=== PATIENT | female | born 1930 | race African-American/Black ===

== ENCOUNTER 2017-04-19 15:20 | Inpatient (IN) | payer MEDICARE, MEDICAID ==
[~2017-04-19] VITALS: Ht 167.6 cm; Wt 80.7 kg
[~2017-04-19 15:20] MED LIST: DOXA2TAB2 PO; FURO-151 PO; HYDR100T26 PO; METO25TA6 PO; NIFE90TA2 PO; PANT40TA4 PO
[2017-04-19] MEDS ORDERED: SODIUM CHLORIDE 0.9% 1,000 ML IV ONE (15:41)
[2017-04-19 16:01] LABS: BASOPHILS % 0.9 % (0.0-2.0); EOSINOPHILS % 1.3 % (0.0-5.0); HEMATOCRIT. 30.8 % (36.0-48.0); HEMOGLOBIN. 10.3 g/dL (12.0-16.0); LYMPHOCYTES % 17.5 % (20.0-50.0); MEAN CORPUSCULAR HEMOGLOBIN 28.2 pg (28.0-32.0); MEAN CORPUSCULAR VOLUME 84.1 fL (81.0-99.0); MEAN PLATELET VOLUME 9.4 fl (7.4-10.4); MONOCYTES % 8.8 % (2.0-8.0); NEUTROPHILS % 71.5 % (40.0-76.0); PLATELET 126 x1000/uL (130-400); RED BLOOD CELL COUNT 3.66 mill/uL (4.2-5.4); RED CELL DISTRIBUTION WIDTH 14.1 % (11.6-14.6)
[2017-04-19 16:08] LABS: INR 1.1; PARTIAL THROMBOPLASTIN TIME 30.3 sec (23.4-31.0); PROTHROMBIN TIME 11.7 sec (9.4-11.6)
[2017-04-19 16:16] LABS: CARBON DIOXIDE 26 mEq/L (21-32); CHLORIDE 100 mEq/L (98-107)
[2017-04-19 16:18] LABS: CREATINE KINASE MB FRACTION 1.4 ng/mL (0.5-3.6)
[2017-04-19] MEDS ORDERED: ASPIRIN 81MG TABLET PO ONE (16:45)
[2017-04-19 17:00] LABS: CLARITY URINE CLOUDY (CLEAR); COLOR URINE YELLOW (YELLOW); GLUCOSE URINE NEGATIVE (NEGATIVE); KETONES URINE NEGATIVE (NEGATIVE); LEUKOCYTE ESTERASE URINE NEGATIVE (NEGATIVE); NITRITE URINE NEGATIVE (NEGATIVE); OCCULT BLOOD URINE NEGATIVE (NEGATIVE); PROTEIN URINE 2+ (NEGATIVE); SPECIFIC GRAVITY URINE 1.011 (1.005-1.030); UROBILINOGEN URINE 0.2 E.U./dL (0.2-1.0)
[2017-04-19] MEDS ORDERED: CLONIDINE 0.2MG TABLET PO ONE (19:30)
[2017-04-19 21:00] VITALS: BP 203/74
[2017-04-19 21:30] VITALS: BP 190/81
[2017-04-19] MEDS ORDERED: DEXTROSE 50% WATER 50ML SYRINGE IV PRN (22:45)
[2017-04-19] MEDS ORDERED: TEMAZEPAM 15MG CAPSULE PO PRN (22:45)
[2017-04-19] MEDS ORDERED: CLONIDINE 0.1MG TABLET PO PRN (22:45)
[2017-04-20] VITALS: BP 147/54
[2017-04-20] MEDS: NIFEDIPINE XL 90MG TAB PO SCH ×2 (00:41→08:12)
[2017-04-20] MEDS: SODIUM CHLORIDE 0.45% 1,000 ML IV SCH ×2 (00:42→14:06)
[2017-04-20 01:09] LABS: TROPONIN I 0.19 ng/mL (0.00-0.04)
[2017-04-20 01:10] LABS: CREATINE KINASE MB FRACTION 1.3 ng/mL (0.5-3.6)
[2017-04-20 04:00] VITALS: BP 148/58
[2017-04-20] MEDS: HYDRALAZINE HCL 50MG TABLET PO SCH ×2 (06:53→14:06)
[2017-04-20] MEDS: BLOOD SUGAR DIAGNOSTIC STRIP TEST SCH ×3 (07:02→17:33)
[2017-04-20] MEDS: INSULIN LISPRO 100 UNITS/ML SUBCUT SCH ×3 (07:03→17:33)
[2017-04-20 07:45] LABS: CREATINE KINASE MB FRACTION 1.2 ng/mL (0.5-3.6); TROPONIN I 0.19 ng/mL (0.00-0.04)
[2017-04-20 08:00] VITALS: BP 123/46
[2017-04-20] MEDS ORDERED: FAMOTIDINE 20MG TABLET PO SCH (09:00)
[2017-04-20] MEDS ORDERED: ENOXAPARIN 30MG/0.3ML SYR SUBCUT SCH (09:00)
[2017-04-20] MEDS ORDERED: PANTOPRAZOLE 40MG DR TABLET PO SCH (09:00)
[2017-04-20] MEDS ORDERED: ASPIRIN 81MG TABLET PO SCH (09:00)
[2017-04-20] MEDS ORDERED: METOPROLOL TARTRATE 25MG TABLET PO SCH (09:00)
[2017-04-20 12:00] VITALS: BP 123/48
[2017-04-20 15:32] LABS: BASOPHILS % 1.9 % (0.0-2.0); EOSINOPHILS % 1.8 % (0.0-5.0); HEMATOCRIT. 29.5 % (36.0-48.0); HEMOGLOBIN. 10.1 g/dL (12.0-16.0); LYMPHOCYTES % 26.7 % (20.0-50.0); MEAN CORPUSCULAR VOLUME 85.1 fL (81.0-99.0); MEAN PLATELET VOLUME 10.5 fl (7.4-10.4); MONOCYTES % 6.9 % (2.0-8.0); NEUTROPHILS % 62.7 % (40.0-76.0); PLATELET 125 x1000/uL (130-400); RED BLOOD CELL COUNT 3.47 mill/uL (4.2-5.4); RED CELL DISTRIBUTION WIDTH 13.7 % (11.6-14.6)
[2017-04-20 19:41] VITALS: BP 138/53
== END 2017-04-20 21:06 | disposition home or self-care (01) | DRG 305 ==
LOC: ER 15:30 → 8WST 16:46 → EDBEDREQ 16:48 → EDBEDREQTM 16:48 → CANRESERV 19:09 → ENRESERV 19:09
PROVIDERS: ADMIT Internal Medicine; ATTEND Internal Medicine
DX: I16.0 Hypertensive urgency (principal); E11.22 Type 2 diabetes mellitus with diabetic chronic kidney disease; D64.9 Anemia, unspecified; R42 Dizziness and giddiness; I12.9 Hypertensive chronic kidney disease with stage 1 through stage 4 chronic kidney disease, or unspecified chronic kidney disease; M62.50 Muscle wasting and atrophy, not elsewhere classified, unspecified site; M19.90 Unspecified osteoarthritis, unspecified site; E78.00 Pure hypercholesterolemia, unspecified; N18.9 Chronic kidney disease, unspecified; Z88.0 Allergy status to penicillin; Z90.10 Acquired absence of unspecified breast and nipple; Z85.3 Personal history of malignant neoplasm of breast
CPT/HCPCS: 36415; 71010; 80048; 80053; 80061; 81001; 82550; 82553; 82962; 84484; 85025; 85610; 85730; 87086; 93005; 93306; 96360; 99285; J1650; J7030

== ENCOUNTER 2017-07-14 10:39 | Emergency (ER) | payer MEDICARE ==
[~2017-07-14] VITALS: Ht 165.1 cm; Wt 102.0 kg
[~2017-07-14 10:39] MED LIST changes: -DOXA2TAB2 PO
[2017-07-14] MEDS ORDERED: SITA50TA3 PO (10:44)
[2017-07-14] MEDS ORDERED: CLON0.1T PO (10:44)
[2017-07-14 11:10] VITALS: BP 175/58
[2017-07-14] MEDS ORDERED: FAMOTIDINE 20MG/2ML VIAL IV STA (11:47)
[2017-07-14] MEDS ORDERED: ONDANSETRON HCL 4MG/2ML VIAL IV STA (11:47)
[2017-07-14] MEDS ORDERED: SODIUM CHLORIDE 0.9% 1,000 ML IV ONE (11:47)
[2017-07-14] MEDS ORDERED: VISCOUS LIDOCAINE 2% 15 ML UDC PO STA (11:47)
[2017-07-14] MEDS ORDERED: MAGNESIUM/ALUMINUM HYDROXIDE/SIMETHICONE 30ML UDC PO STA (11:47)
[2017-07-14] MEDS ORDERED: DICYCLOMINE 10 MG/5 ML ORAL SYR PO STA (11:47)
[2017-07-14 12:39] LABS: EOSINOPHILS % 1.1 % (0.0-5.0); HEMATOCRIT. 31.1 % (36.0-48.0); HEMOGLOBIN. 10.4 g/dL (12.0-16.0); LYMPHOCYTES % 17.6 % (20.0-50.0); MEAN CORPUSCULAR HEMOGLOBIN 27.3 pg (28.0-32.0); MEAN CORPUSCULAR VOLUME 81.8 fL (81.0-99.0); MEAN PLATELET VOLUME 9.9 fl (7.4-10.4); MONOCYTES % 7.5 % (2.0-8.0); NEUTROPHILS % 72.8 % (40.0-76.0); PLATELET 173 x1000/uL (130-400); RED CELL DISTRIBUTION WIDTH 13.5 % (11.6-14.6)
[2017-07-14 12:48] LABS: CHLORIDE 93 mEq/L (98-107); INR 1.1; PROTHROMBIN TIME 11.4 sec (9.4-11.6)
[2017-07-14 12:48] LABS: CLARITY URINE CLEAR (CLEAR); COLOR URINE YELLOW (YELLOW); KETONES URINE NEGATIVE (NEGATIVE); LEUKOCYTE ESTERASE URINE NEGATIVE (NEGATIVE); NITRITE URINE NEGATIVE (NEGATIVE); OCCULT BLOOD URINE NEGATIVE (NEGATIVE); PROTEIN URINE 2+ (NEGATIVE); SPECIFIC GRAVITY URINE 1.009 (1.005-1.030); UROBILINOGEN URINE 0.2 E.U./dL (0.2-1.0)
== END 2017-07-14 13:36 | disposition home or self-care (01) ==
LOC: ER 10:46
DX: K21.9 Gastro-esophageal reflux disease without esophagitis (principal); E11.9 Type 2 diabetes mellitus without complications; E78.00 Pure hypercholesterolemia, unspecified; R79.1 Abnormal coagulation profile; I10 Essential (primary) hypertension; Z88.0 Allergy status to penicillin; Z90.10 Acquired absence of unspecified breast and nipple
CPT/HCPCS: 36415; 71045; 80053; 81001; 82962; 83690; 85025; 85610; 93005; 96361; 96374; 96375; 99285; J2405; J3490; J7030

== ENCOUNTER 2017-08-31 15:26 | Inpatient (IN) | payer MEDICARE, MEDICAID ==
[~2017-08-31] VITALS: Ht 177.8 cm; Wt 77.1 kg
[~2017-08-31 15:26] MED LIST changes: +CLON0.1T PO; +SITA50TA3 PO
[2017-08-31] MEDS ORDERED: ASPIRIN 81MG EC TABLET PO ONE (17:00)
[2017-08-31 17:34] LABS: BASOPHILS % 0.9 % (0.0-2.0); EOSINOPHILS % 1.7 % (0.0-5.0); HEMATOCRIT. 30.9 % (36.0-48.0); HEMOGLOBIN. 10.4 g/dL (12.0-16.0); LYMPHOCYTES % 25.5 % (20.0-50.0); MEAN CORPUSCULAR HEMOGLOBIN 27.7 pg (28.0-32.0); MEAN CORPUSCULAR VOLUME 82.5 fL (81.0-99.0); MEAN PLATELET VOLUME 9.7 fl (7.4-10.4); MONOCYTES % 5.9 % (2.0-8.0); PLATELET 124 x1000/uL (130-400); RED BLOOD CELL COUNT 3.75 mill/uL (4.2-5.4); RED CELL DISTRIBUTION WIDTH 14.2 % (11.6-14.6)
[2017-08-31 17:38] LABS: CHLORIDE 103 mEq/L (98-107)
[2017-08-31 17:38] LABS: INR 1.1; PARTIAL THROMBOPLASTIN TIME 29.4 sec (23.4-31.0); PROTHROMBIN TIME 11.7 sec (9.4-11.6)
[2017-08-31] MEDS ORDERED: ASPIRIN 325MG EC TABLET PO ONE (18:30)
[2017-08-31] MEDS ORDERED: LABETALOL HCL 20MG/4ML CARPUJECT IV STA (18:36)
[2017-08-31] MEDS ORDERED: LABETALOL 5MG/ML SYR 20 MG/4 ML SYRINGE IV ONE (19:04)
[2017-08-31 19:17] LABS: CLARITY URINE CLEAR (CLEAR); COLOR URINE YELLOW (YELLOW); KETONES URINE NEGATIVE (NEGATIVE); LEUKOCYTE ESTERASE URINE NEGATIVE (NEGATIVE); NITRITE URINE NEGATIVE (NEGATIVE); OCCULT BLOOD URINE NEGATIVE (NEGATIVE); PH URINE 6.5 (4.5-8.0); PROTEIN URINE 2+ (NEGATIVE); SPECIFIC GRAVITY URINE 1.011 (1.005-1.030); UROBILINOGEN URINE 0.2 E.U./dL (0.2-1.0)
[2017-08-31] MEDS: LOSARTAN POTASSIUM 50 MG TABLET PO SCH (22:15)
[2017-08-31] MEDS ORDERED: ACETAMINOPHEN 650MG/20.3ML UDC PO PRN (22:15)
[2017-08-31] MEDS: ASPIRIN 81MG TABLET PO SCH (22:15)
[2017-08-31] MEDS: METOPROLOL TARTRATE 50MG TABLET PO SCH (22:15)
[2017-08-31] MEDS ORDERED: LOSARTAN POTASSIUM 50 MG TABLET PO NR (22:30)
[2017-08-31 23:45] VITALS: BP 179/58
[2017-09-01] VITALS: BP 179/58
[2017-09-01] MEDS ORDERED: AMLO2.5T45 PO (00:20)
[2017-09-01] MEDS ORDERED: SIMV10TA6 PO (00:20)
[2017-09-01] MEDS ORDERED: DEXTROSE 50% WATER 50ML SYRINGE IV PRN (01:15)
[2017-09-01 04:00] VITALS: BP 150/50
[2017-09-01] MEDS: HYDRALAZINE HCL 50MG TABLET PO SCH ×3 (05:49→21:12)
[2017-09-01] MEDS: PANTOPRAZOLE 40MG DR TABLET PO SCH ×2 (05:50→20:38)
[2017-09-01] MEDS: BLOOD SUGAR DIAGNOSTIC STRIP TEST SCH ×4 (05:51→20:46)
[2017-09-01 08:28] LABS: BASOPHILS % 0.8 % (0.0-2.0); EOSINOPHILS % 2.1 % (0.0-5.0); HEMATOCRIT. 31.2 % (36.0-48.0); HEMOGLOBIN. 10.5 g/dL (12.0-16.0); LYMPHOCYTES % 34.9 % (20.0-50.0); MEAN CORPUSCULAR HEMOGLOBIN 27.5 pg (28.0-32.0); MEAN CORPUSCULAR VOLUME 81.9 fL (81.0-99.0); MEAN PLATELET VOLUME 10.4 fl (7.4-10.4); MONOCYTES % 6.6 % (2.0-8.0); NEUTROPHILS % 55.6 % (40.0-76.0); PLATELET 131 x1000/uL (130-400); RED BLOOD CELL COUNT 3.81 mill/uL (4.2-5.4); RED CELL DISTRIBUTION WIDTH 14.4 % (11.6-14.6)
[2017-09-01 08:56] LABS: CHLORIDE 106 mEq/L (98-107)
[2017-09-01 09:00] VITALS: BP 176/66
[2017-09-01 09:16] LABS: HDL CHOLESTEROL 59 mg/dL (40-59); LDL CHOLESTEROL 98 mg/dL (5-100); TROPONIN I 0.12 ng/mL (0.00-0.04)
[2017-09-01] MEDS: ASPIRIN 81MG TABLET PO SCH (10:10)
[2017-09-01] MEDS: METOPROLOL TARTRATE 50MG TABLET PO SCH ×2 (10:11→20:39)
[2017-09-01] MEDS: LOSARTAN POTASSIUM 50 MG TABLET PO SCH ×2 (10:11→20:38)
[2017-09-01] MEDS: ENOXAPARIN 30MG/0.3ML SYR SUBCUT SCH (10:12)
[2017-09-01 12:00] VITALS: BP 196/62
[2017-09-01 16:00] VITALS: BP 175/62
[2017-09-01] MEDS ORDERED: POTASSIUM CHLORIDE 20MEQ/PACKET PO NR (18:45)
[2017-09-01] MEDS ORDERED: METO-539 PO (19:44)
[2017-09-01] MEDS ORDERED: RANI150T7 PO (19:44)
[2017-09-01] MEDS ORDERED: OCD PO (19:44)
[2017-09-01] MEDS ORDERED: TEMA15CA5 PO (19:44)
[2017-09-01] MEDS ORDERED: LORA10TA7 PO (19:44)
[2017-09-01] MEDS ORDERED: POTA10CA42 PO (19:44)
[2017-09-01] MEDS ORDERED: ASPI-1159 PO (19:44)
[2017-09-01] MEDS ORDERED: FURO-152 PO (19:44)
[2017-09-01] MEDS ORDERED: LOSA25TA3 PO (19:44)
[2017-09-01 20:00] VITALS: BP_SYST 204; BP_SYST 212; BP_DIAS 58; BP_DIAS 71
[2017-09-01] MEDS ORDERED: LABETALOL 5MG/ML SYR 20 MG/4 ML SYRINGE IV NR (20:00)
[2017-09-01] MEDS: ATORVASTATIN CALCIUM 20MG TABLET PO SCH (20:38)
[2017-09-01] MEDS: ACETAMINOPHEN 325MG TABLET PO PRN (21:12)
[2017-09-02] VITALS (7 sets, daily range): BP systolic 134–218; BP diastolic 41–71
[2017-09-02] MEDS ORDERED: TEMAZEPAM 15MG CAPSULE PO PRN
[2017-09-02] MEDS: CLONIDINE 0.2MG TABLET PO PRN ×3 (00:09→17:46)
[2017-09-02] MEDS: HYDRALAZINE HCL 50MG TABLET PO SCH ×3 (05:51→21:38)
[2017-09-02] MEDS: PANTOPRAZOLE 40MG DR TABLET PO SCH ×2 (05:51→21:37)
[2017-09-02] MEDS: BLOOD SUGAR DIAGNOSTIC STRIP TEST SCH ×4 (05:52→21:52)
[2017-09-02 06:45] LABS: BASOPHILS % 0.9 % (0.0-2.0); EOSINOPHILS % 2.3 % (0.0-5.0); HEMATOCRIT. 29.7 % (36.0-48.0); LYMPHOCYTES % 31.3 % (20.0-50.0); MEAN CORPUSCULAR VOLUME 83.2 fL (81.0-99.0); NEUTROPHILS % 57.5 % (40.0-76.0); PLATELET 117 x1000/uL (130-400); RED BLOOD CELL COUNT 3.57 mill/uL (4.2-5.4); RED CELL DISTRIBUTION WIDTH 14.5 % (11.6-14.6)
[2017-09-02 07:20] LABS: CHLORIDE 106 mEq/L (98-107)
[2017-09-02] MEDS: ACETAMINOPHEN 325MG TABLET PO PRN (07:56)
[2017-09-02] MEDS: ASPIRIN 81MG TABLET PO SCH (08:00)
[2017-09-02] MEDS: LOSARTAN POTASSIUM 50 MG TABLET PO SCH ×2 (08:01→21:37)
[2017-09-02] MEDS: METOPROLOL TARTRATE 50MG TABLET PO SCH ×2 (08:01→21:38)
[2017-09-02] MEDS: ENOXAPARIN 30MG/0.3ML SYR SUBCUT SCH (08:03)
[2017-09-02] MEDS ORDERED: ONDANSETRON HCL 4MG/2ML VIAL IV PRN (08:30)
[2017-09-02] MEDS: MORPHINE SULFATE 4 MG/ML CPJ (NOT FOR IM USE) IV PRN ×2 (17:41→21:41)
[2017-09-02] MEDS: ATORVASTATIN CALCIUM 20MG TABLET PO SCH (21:37)
[2017-09-02] MEDS: AMLODIPINE 5MG TABLET PO SCH (21:37)
[2017-09-03] VITALS: BP 197/59
[2017-09-03] MEDS: CLONIDINE 0.2MG TABLET PO PRN (01:09)
[2017-09-03 04:00] VITALS: BP 136/47
[2017-09-03] MEDS: HYDRALAZINE HCL 50MG TABLET PO SCH (06:43)
[2017-09-03] MEDS: PANTOPRAZOLE 40MG DR TABLET PO SCH (06:43)
[2017-09-03] MEDS: BLOOD SUGAR DIAGNOSTIC STRIP TEST SCH ×2 (06:49→12:16)
[2017-09-03 08:00] VITALS: BP 210/74
[2017-09-03] MEDS: ENOXAPARIN 30MG/0.3ML SYR SUBCUT SCH (08:53)
[2017-09-03] MEDS: LOSARTAN POTASSIUM 50 MG TABLET PO SCH (08:55)
[2017-09-03] MEDS: AMLODIPINE 5MG TABLET PO SCH (08:55)
[2017-09-03] MEDS: ASPIRIN 81MG TABLET PO SCH (08:56)
[2017-09-03] MEDS: METOPROLOL TARTRATE 50MG TABLET PO SCH (08:56)
[2017-09-03 11:07] LABS: HEMOGLOBIN 11.3 g/dL (12.0-16.0); MEAN CORPUSCULAR HEMOGLOBIN 28.5 pg (28.0-32.0); MEAN CORPUSCULAR VOLUME 85.7 fL (81.0-99.0); PLATELET 110 x1000/uL (130-400); RED BLOOD CELL COUNT 3.97 mill/uL (4.2-5.4); RED CELL DISTRIBUTION WIDTH 15.1 % (11.6-14.6)
[2017-09-03 12:00] VITALS: BP 164/49
[2017-09-03 12:42] VITALS: BP_SYST 146; BP_SYST 164; BP_DIAS 46; BP_DIAS 49
[2017-09-03] MEDS ORDERED: DEXTROSE 50% WATER 50ML SYRINGE IV PRN (12:45)
[2017-09-03] MEDS ORDERED: INSULIN LISPRO 100 UNITS/ML SUBCUT SCH (13:11)
[2017-09-03] MEDS ORDERED: BLOOD SUGAR DIAGNOSTIC STRIP TEST SCH (16:45)
== END 2017-09-03 13:15 | DRG 291 ==
LOC: ER 15:26 → 5WST 18:28 → EDBEDREQ 18:29 → ENRESERV 19:55 → CANRESERV 19:56 → ENRESERV 19:56
PROVIDERS: ADMIT Internal Medicine; ATTEND Internal Medicine
DX: I13.0 Hypertensive heart and chronic kidney disease with heart failure and stage 1 through stage 4 chronic kidney disease, or unspecified chronic kidney disease (principal); I50.33 Acute on chronic diastolic (congestive) heart failure; E46 Unspecified protein-calorie malnutrition; E11.22 Type 2 diabetes mellitus with diabetic chronic kidney disease; D64.9 Anemia, unspecified; N18.9 Chronic kidney disease, unspecified; E78.00 Pure hypercholesterolemia, unspecified; E78.5 Hyperlipidemia, unspecified; I16.0 Hypertensive urgency; G47.00 Insomnia, unspecified; Z79.82 Long term (current) use of aspirin; Z79.84 Long term (current) use of oral hypoglycemic drugs; Z79.899 Other long term (current) drug therapy; Z90.10 Acquired absence of unspecified breast and nipple; Z88.0 Allergy status to penicillin; Z68.24 Body mass index [BMI] 24.0-24.9, adult
CPT/HCPCS: 36415; 70450; 71045; 80048; 80053; 80061; 81003; 82962; 83690; 83880; 84443; 84484; 85025; 85027; 85610; 85730; 93005; 96374; 97162; 99285; J1650; J1815; J2270; J3490

== ENCOUNTER 2018-10-11 19:05 | Inpatient (IN) | payer MEDICARE, MEDICAID ==
[~2018-10-11] VITALS: Ht 177.8 cm; Wt 78.5 kg
[~2018-10-11 19:05] MED LIST changes: +ACET-2178 PO; +AMLO10TA80 PO; +ASPI-1159 PO; -FURO-151 PO; +FURO-152 PO; +GABA-531 PO; +HYDR-4134 PO; -HYDR100T26 PO; +LORA10TA7 PO; +LOSA25TA3 PO; +MAGN400C PO; +METO-539 PO; -METO25TA6 PO; -NIFE90TA2 PO; +OCD PO; -PANT40TA4 PO; +POTA10CA42 PO; +PRAV20TA57 PO; +RANI150T7 PO; +SPIR50TA5 PO; +TEMA15CA5 PO
[2018-10-11] MEDS ORDERED: MORPHINE SULFATE 4 MG/ML CPJ (NOT FOR IM USE) IV STA (19:44)
[2018-10-11] MEDS ORDERED: SODIUM CHLORIDE 0.9% 1,000 ML IV ONE (19:44)
[2018-10-11] MEDS ORDERED: ONDANSETRON HCL 4MG/2ML INJ IV STA (19:44)
[2018-10-11 20:05] LABS: EOSINOPHILS % 2.9 % (0.0-5.0); HEMATOCRIT. 26.1 % (36.0-48.0); HEMOGLOBIN. 8.9 g/dL (12.0-16.0); LYMPHOCYTES % 21.1 % (20.0-50.0); MEAN CORPUSCULAR HEMOGLOBIN 29.8 pg (28.0-32.0); MEAN CORPUSCULAR VOLUME 87.8 fL (81.0-99.0); MEAN PLATELET VOLUME 9.8 fl (7.4-10.4); MONOCYTES % 6.7 % (2.0-8.0); NEUTROPHILS % 68.3 % (40.0-76.0); PLATELET 178 x1000/uL (130-400); RED BLOOD CELL COUNT 2.98 mill/uL (4.2-5.4); RED CELL DISTRIBUTION WIDTH 14.4 % (11.6-14.6)
[2018-10-11 20:07] LABS: CHLORIDE 103 mEq/L (98-107)
[2018-10-11 20:10] LABS: INR 1.1; PARTIAL THROMBOPLASTIN TIME 32.3 sec (23.4-31.0); PROTHROMBIN TIME 11.5 sec (9.6-11.0)
[2018-10-11 20:41] LABS: CLARITY URINE CLEAR (CLEAR); COLOR URINE YELLOW (YELLOW); KETONES URINE NEGATIVE (NEGATIVE); LEUKOCYTE ESTERASE URINE NEGATIVE (NEGATIVE); NITRITE URINE NEGATIVE (NEGATIVE); OCCULT BLOOD URINE TRACE (NEGATIVE); PH URINE 6.5 (4.5-8.0); PROTEIN URINE 3+ (NEGATIVE); SPECIFIC GRAVITY URINE 1.008 (1.005-1.030); UROBILINOGEN URINE 0.2 E.U./dL (0.2-1.0)
[2018-10-11] MEDS ORDERED: HYDRALAZINE 20MG/ML VIAL IV ONE (22:00)
[2018-10-11] MEDS ORDERED: FUROSEMIDE 40MG/4ML VIAL IVP ONE (22:00)
[2018-10-11] MEDS ORDERED: ASPIRIN 81MG TABLET PO ONE (22:00)
[2018-10-11] MEDS ORDERED: CLONIDINE 0.2MG TABLET PO PRN (23:45)
[2018-10-12] VITALS (7 sets, daily range): BP systolic 145–193; BP diastolic 46–92
[2018-10-12] MEDS ORDERED: DEXTROSE 50% WATER 50ML SYRINGE IV PRN (01:45)
[2018-10-12] MEDS ORDERED: CLONIDINE 0.2MG TABLET PO PRN (01:45)
[2018-10-12] MEDS: MORPHINE SULFATE 4 MG/ML CPJ (NOT FOR IM USE) IV PRN ×2 (04:05→21:07)
[2018-10-12 05:59] LABS: BASOPHILS % 0.7 % (0.0-2.0); EOSINOPHILS % 0.1 % (0.0-5.0); HEMATOCRIT. 22.8 % (36.0-48.0); HEMOGLOBIN. 7.7 g/dL (12.0-16.0); LYMPHOCYTES % 13.4 % (20.0-50.0); MEAN CORPUSCULAR HEMOGLOBIN 29.8 pg (28.0-32.0); MEAN CORPUSCULAR VOLUME 87.8 fL (81.0-99.0); MEAN PLATELET VOLUME 10.5 fl (7.4-10.4); MONOCYTES % 5.4 % (2.0-8.0); NEUTROPHILS % 80.4 % (40.0-76.0); PLATELET 160 x1000/uL (130-400); RED BLOOD CELL COUNT 2.59 mill/uL (4.2-5.4); RED CELL DISTRIBUTION WIDTH 14.6 % (11.6-14.6)
[2018-10-12] MEDS: INSULIN LISPRO 100 UNITS/ML SUBCUT SCH ×4 (06:24→21:00)
[2018-10-12] MEDS: BLOOD SUGAR DIAGNOSTIC STRIP TEST SCH ×4 (06:24→21:21)
[2018-10-12 06:35] LABS: CREATINE KINASE MB FRACTION 2.8 ng/mL (0.5-3.6)
[2018-10-12] MEDS ORDERED: ENOXAPARIN 30MG/0.3ML SYR SUBCUT SCH (09:00)
[2018-10-12] MEDS: AMLODIPINE 10MG TABLET PO SCH (09:48)
[2018-10-12] MEDS ORDERED: SODIUM CHLORIDE 0.9% 1,000 ML IV SCH (10:45)
[2018-10-12 11:26] LABS: TOTAL IRON BINDING CAPACITY 177 ug/dL (250-450)
[2018-10-12] MEDS: OMEPRAZOLE 20MG CAPSULE EXTENDED RELEASE PO SCH (12:04)
[2018-10-12 13:59] LABS: CREATINE KINASE MB FRACTION 2.7 ng/mL (0.5-3.6)
[2018-10-12] MEDS ORDERED: HYDRALAZINE HCL 50MG TABLET PO SCH (21:00)
[2018-10-12] MEDS: IRON SUCROSE COMPLEX 100 MG/5 ML ML IV SCH (21:06)
[2018-10-12 21:46] LABS: CREATINE KINASE MB FRACTION 2.8 ng/mL (0.5-3.6)
[2018-10-13] VITALS: BP 183/67
[2018-10-13] MEDS ORDERED: AMLODIPINE 10MG TABLET PO NR (01:00)
[2018-10-13] MEDS: MORPHINE SULFATE 4 MG/ML CPJ (NOT FOR IM USE) IV PRN ×2 (01:12→08:40)
[2018-10-13] MEDS: HYDRALAZINE HCL 50MG TABLET PO SCH ×2 (01:19→08:59)
[2018-10-13 04:00] VITALS: BP 158/51
[2018-10-13] MEDS: INSULIN LISPRO 100 UNITS/ML SUBCUT SCH ×4 (06:11→21:52)
[2018-10-13] MEDS: OMEPRAZOLE 20MG CAPSULE EXTENDED RELEASE PO SCH (06:11)
[2018-10-13] MEDS: BLOOD SUGAR DIAGNOSTIC STRIP TEST SCH ×4 (06:11→21:14)
[2018-10-13 07:18] LABS: BASOPHILS % 0.9 % (0.0-2.0); EOSINOPHILS % 2.9 % (0.0-5.0); HEMATOCRIT. 23.2 % (36.0-48.0); HEMOGLOBIN. 7.7 g/dL (12.0-16.0); LYMPHOCYTES % 35.9 % (20.0-50.0); MEAN CORPUSCULAR HEMOGLOBIN 29.3 pg (28.0-32.0); MEAN CORPUSCULAR VOLUME 88.4 fL (81.0-99.0); MEAN PLATELET VOLUME 10.4 fl (7.4-10.4); MONOCYTES % 7.5 % (2.0-8.0); NEUTROPHILS % 52.8 % (40.0-76.0); PLATELET 148 x1000/uL (130-400); RED BLOOD CELL COUNT 2.62 mill/uL (4.2-5.4); RED CELL DISTRIBUTION WIDTH 14.5 % (11.6-14.6)
[2018-10-13 08:00] VITALS: BP 233/79
[2018-10-13] MEDS: AMLODIPINE 10MG TABLET PO SCH (08:39)
[2018-10-13] MEDS ORDERED: CLONIDINE 0.2MG TABLET PO PRN (08:54)
[2018-10-13] MEDS: ONDANSETRON HCL 4MG/2ML INJ IV PRN ×2 (09:57→18:33)
[2018-10-13] MEDS ORDERED: CLONIDINE 0.1MG TABLET PO PRN (10:45)
[2018-10-13] MEDS ORDERED: NITROGLYCERIN OINT 1GM/INCH UDPKT TD NR (10:45)
[2018-10-13] MEDS ORDERED: NIFEDIPINE XL 60MG TAB PO SCH ×2 (11:00→21:00)
[2018-10-13 12:00] VITALS: BP 204/68
[2018-10-13] MEDS ORDERED: METOPROLOL TARTRATE 25MG TABLET PO SCH ×2 (12:00→21:00)
[2018-10-13] MEDS ORDERED: HYDRALAZINE 20MG/ML VIAL IV NR (13:15)
[2018-10-13] MEDS ORDERED: CLONIDINE 0.2MG TABLET PO SCH (15:00)
[2018-10-13] MEDS: CLONIDINE 0.1MG TABLET PO SCH ×2 (15:00→21:14)
[2018-10-13] MEDS ORDERED: CLONIDINE 0.1MG TABLET PO SCH (15:00)
[2018-10-13 16:00] VITALS: BP 149/52
[2018-10-13] MEDS ORDERED: FUROSEMIDE 40MG/4ML VIAL IVP NR (16:00)
[2018-10-13 18:00] LABS: PHOSPHORUS 4.7 mg/dL (2.5-4.9)
[2018-10-13] MEDS: HYDRALAZINE HCL 100MG TABLET PO SCH (18:00)
[2018-10-13 20:00] VITALS: BP 130/51
[2018-10-13] MEDS: IRON SUCROSE COMPLEX 100 MG/5 ML ML IV SCH (21:14)
[2018-10-14] VITALS: BP 106/40
[2018-10-14] MEDS: HYDRALAZINE HCL 100MG TABLET PO SCH (02:57)
[2018-10-14] MEDS: CLONIDINE 0.1MG TABLET PO SCH ×4 (03:00→21:28)
[2018-10-14 04:00] VITALS: BP 100/37
[2018-10-14 06:11] LABS: BASOPHILS % 0.6 % (0.0-2.0); EOSINOPHILS % 1.5 % (0.0-5.0); HEMATOCRIT. 22.2 % (36.0-48.0); HEMOGLOBIN. 7.5 g/dL (12.0-16.0); LYMPHOCYTES % 21.4 % (20.0-50.0); MEAN CORPUSCULAR VOLUME 88.9 fL (81.0-99.0); MEAN PLATELET VOLUME 10.6 fl (7.4-10.4); MONOCYTES % 8.4 % (2.0-8.0); NEUTROPHILS % 68.1 % (40.0-76.0); PLATELET 159 x1000/uL (130-400); RED CELL DISTRIBUTION WIDTH 14.6 % (11.6-14.6)
[2018-10-14] MEDS: OMEPRAZOLE 20MG CAPSULE EXTENDED RELEASE PO SCH (06:48)
[2018-10-14] MEDS: BLOOD SUGAR DIAGNOSTIC STRIP TEST SCH ×4 (06:49→21:28)
[2018-10-14] MEDS: INSULIN LISPRO 100 UNITS/ML SUBCUT SCH ×4 (06:52→21:00)
[2018-10-14 06:55] LABS: CHLORIDE 106 mEq/L (98-107)
[2018-10-14] MEDS: ONDANSETRON HCL 4MG/2ML INJ IV PRN (07:36)
[2018-10-14 08:00] VITALS: BP 102/49
[2018-10-14] MEDS: METOPROLOL TARTRATE 25MG TABLET PO SCH ×2 (09:00→21:00)
[2018-10-14] MEDS ORDERED: BACTERIOSTATIC SODIUM CHLORIDE 0.9% 30ML VIAL IJ ONE (09:51)
[2018-10-14] MEDS ORDERED: SIMETHICONE 40 MG/0.6 ML 30ML ONE (09:51)
[2018-10-14] MEDS: HYDRALAZINE HCL 25MG TABLET PO SCH ×2 (10:00→18:56)
[2018-10-14 12:00] VITALS: BP 123/44
[2018-10-14 16:00] VITALS: BP 132/41
[2018-10-14] MEDS ORDERED: MIDAZOLAM HCL 5 MG/5 ML VIAL ONE (16:15)
[2018-10-14] MEDS ORDERED: FENTANYL CITRATE/PF 50MCG/ML 2ML VIAL ONE (16:15)
[2018-10-14] MEDS ORDERED: MIDAZOLAM HCL 5 MG/5 ML VIAL IV PRN (16:18)
[2018-10-14 20:00] VITALS: BP 114/36
[2018-10-14] MEDS: IRON SUCROSE COMPLEX 100 MG/5 ML ML IV SCH (21:28)
[2018-10-14 22:05] LABS: PHOSPHORUS 4.8 mg/dL (2.5-4.9)
[2018-10-14 22:14] LABS: TOTAL IRON BINDING CAPACITY 189 ug/dL (250-450)
[2018-10-15] VITALS (7 sets, daily range): BP systolic 124–193; BP diastolic 41–64
[2018-10-15] MEDS: HYDRALAZINE HCL 25MG TABLET PO SCH ×3 (02:00→17:40)
[2018-10-15] MEDS: OMEPRAZOLE 20MG CAPSULE EXTENDED RELEASE PO SCH (05:56)
[2018-10-15] MEDS: CLONIDINE 0.1MG TABLET PO SCH ×3 (06:00→21:35)
[2018-10-15] MEDS: BLOOD SUGAR DIAGNOSTIC STRIP TEST SCH ×4 (06:01→21:36)
[2018-10-15] MEDS: INSULIN LISPRO 100 UNITS/ML SUBCUT SCH ×4 (06:05→21:00)
[2018-10-15] MEDS: METOPROLOL TARTRATE 25MG TABLET PO SCH ×2 (08:59→21:35)
[2018-10-15 09:26] LABS: BASOPHILS % 0.7 % (0.0-2.0); EOSINOPHILS % 1.6 % (0.0-5.0); HEMATOCRIT. 23.6 % (36.0-48.0); HEMOGLOBIN. 7.9 g/dL (12.0-16.0); LYMPHOCYTES % 20.7 % (20.0-50.0); MEAN CORPUSCULAR HEMOGLOBIN 29.8 pg (28.0-32.0); MEAN PLATELET VOLUME 9.7 fl (7.4-10.4); MONOCYTES % 10.4 % (2.0-8.0); NEUTROPHILS % 66.6 % (40.0-76.0); PLATELET 147 x1000/uL (130-400); RED BLOOD CELL COUNT 2.65 mill/uL (4.2-5.4); RED CELL DISTRIBUTION WIDTH 14.8 % (11.6-14.6)
[2018-10-15] MEDS ORDERED: LACTULOSE 20G/30ML UDC PO PRN (11:00)
[2018-10-15] MEDS ORDERED: LACTULOSE 20G/30ML UDC PO SCH (11:00)
[2018-10-15 13:52] LABS: BG BASE EXCESS -2.5 mmol/L (-2.0-2.0); BG CARBOXYHEMOGLOBIN 0.3 % (0.5-1.5); BG DEOXYHEMOGLOBIN 5.6 % (0.0-5.0); BG FRACTION INSPIRED OXYGEN 21; BG HCO3 ACT 22.3 mmol/L (22.0-26.0); BG METHEMOGLOBIN 0.1 % (0.0-1.5); BG OXYGEN SATURATION 94.4 % (92.0-98.5); BG PCO2 38.6 mmHg (35.0-45.0); BG PO2 72.3 mmHg (75.0-100.0); BG SAMPLE SITE LEFT BRACHIAL; BG TOTAL HEMOGLOBIN 9.3 g/dL (12.0-18.0); BG VENT MODE ROOM AIR
[2018-10-15 17:47] LABS: HEPATITIS B SURFACE ANTIGEN NEGATIVE
[2018-10-15 18:17] LABS: HEPATITIS A AB IGM NEGATIVE (NEGATIVE)
[2018-10-16] VITALS (7 sets, daily range): BP systolic 140–239; BP diastolic 48–82
[2018-10-16] MEDS: HYDRALAZINE HCL 25MG TABLET PO SCH (03:06)
[2018-10-16 06:35] LABS: HEMATOCRIT 23.3 % (36.0-48.0); HEMOGLOBIN 7.9 g/dL (12.0-16.0); PLATELET 140 x1000/uL (130-400); RED BLOOD CELL COUNT 2.62 mill/uL (4.2-5.4); RED CELL DISTRIBUTION WIDTH 14.4 % (11.6-14.6)
[2018-10-16] MEDS: OMEPRAZOLE 20MG CAPSULE EXTENDED RELEASE PO SCH (06:42)
[2018-10-16] MEDS: BLOOD SUGAR DIAGNOSTIC STRIP TEST SCH ×3 (06:43→17:08)
[2018-10-16] MEDS: CLONIDINE 0.1MG TABLET PO SCH (06:43)
[2018-10-16] MEDS: INSULIN LISPRO 100 UNITS/ML SUBCUT SCH ×3 (06:43→17:22)
[2018-10-16] MEDS ORDERED: CLONIDINE 0.2MG TABLET PO PRN (07:45)
[2018-10-16] MEDS ORDERED: METOPROLOL TARTRATE 50MG TABLET PO SCH (09:00)
[2018-10-16] MEDS ORDERED: NIFEDIPINE XL 60MG TAB PO SCH (09:00)
[2018-10-16] MEDS ORDERED: HYDRALAZINE HCL 50MG TABLET PO SCH ×2 (10:00→18:00)
[2018-10-16] MEDS ORDERED: FUROSEMIDE 40MG/4ML VIAL IVP NR (14:00)
[2018-10-17] MEDS ORDERED: NIFEDIPINE XL 90MG TAB PO SCH (09:00)
[2018-10-17 09:07] LABS: COMPLEMENT C3 70 mg/dL (82-167)
[2018-10-17 13:06] LABS: ANA IFA Negative (.)
== END 2018-10-16 18:45 | DRG 280 ==
LOC: ER 19:15 → 5WST 21:54 → EDBEDREQ 21:59 → EDBEDREQTM 21:59 → ENRESERV 23:13
PROVIDERS: ADMIT Internal Medicine; ATTEND Internal Medicine
PROC: 0DJ08ZZ Inspection of Upper Intestinal Tract, Via Natural or Artificial Opening Endoscopic (ICD-10-PCS; principal; 2018-10-11)
PROC: 30233N1 Transfusion of Nonautologous Red Blood Cells into Peripheral Vein, Percutaneous Approach (ICD-10-PCS; 2018-10-15)
DX: I21.4 Non-ST elevation (NSTEMI) myocardial infarction (principal); I50.33 Acute on chronic diastolic (congestive) heart failure; I13.2 Hypertensive heart and chronic kidney disease with heart failure and with stage 5 chronic kidney disease, or end stage renal disease; N17.9 Acute kidney failure, unspecified; E44.1 Mild protein-calorie malnutrition; N18.5 Chronic kidney disease, stage 5; K29.70 Gastritis, unspecified, without bleeding; E11.22 Type 2 diabetes mellitus with diabetic chronic kidney disease; K21.9 Gastro-esophageal reflux disease without esophagitis; D50.9 Iron deficiency anemia, unspecified; E78.00 Pure hypercholesterolemia, unspecified; K22.2 Esophageal obstruction; K44.9 Diaphragmatic hernia without obstruction or gangrene; I16.0 Hypertensive urgency; D64.9 Anemia, unspecified; K52.9 Noninfective gastroenteritis and colitis, unspecified; Z85.3 Personal history of malignant neoplasm of breast; Z82.49 Family history of ischemic heart disease and other diseases of the circulatory system; Z90.710 Acquired absence of both cervix and uterus; Z90.49 Acquired absence of other specified parts of digestive tract; Z90.13 Acquired absence of bilateral breasts and nipples; Z88.0 Allergy status to penicillin; Z79.82 Long term (current) use of aspirin; Z79.899 Other long term (current) drug therapy; Z68.24 Body mass index [BMI] 24.0-24.9, adult
CPT/HCPCS: 36415; 36600; 71045; 74176; 76700; 76770; 80048; 80061; 80076; 82270; 82375; 82550; 82553; 82575; 82728; 82805; 82962; 83540; 83550; 83605; 83880; 83970; 84100; 84145; 84484; 85027; 86160; 86256; 86705; 86709; 86803; 86850; 86900; 86920; 87340; 93005; 93306; 96361; 96374; 96375; 97116; 97162; 97166; 97530; 99285; J0360; J1650; J1815; J1940; J2250; J2270; J2405; J3010; J3490; J7030; J7040

== ENCOUNTER 2019-02-17 14:40 | Inpatient (IN) | payer MEDICARE, MEDICAID ==
[~2019-02-17] VITALS: Ht 162.6 cm; Wt 70.3 kg
[2019-02-17 19:06] LABS: BASOPHILS % 1.2 % (0.0-2.0); EOSINOPHILS % 2.2 % (0.0-5.0); HEMATOCRIT. 36.5 % (36.0-48.0); HEMOGLOBIN. 12.4 g/dL (12.0-16.0); LYMPHOCYTES % 44.7 % (20.0-50.0); MEAN CORPUSCULAR HEMOGLOBIN 29.9 pg (28.0-32.0); MEAN CORPUSCULAR VOLUME 88.3 fL (81.0-99.0); MEAN PLATELET VOLUME 10.2 fl (7.4-10.4); MONOCYTES % 10.4 % (2.0-8.0); NEUTROPHILS % 41.5 % (40.0-76.0); PLATELET 117 x1000/uL (130-400); RED BLOOD CELL COUNT 4.13 mill/uL (4.2-5.4); RED CELL DISTRIBUTION WIDTH 15.1 % (11.6-14.6)
[2019-02-17 19:10] LABS: CHLORIDE 94 mEq/L (98-107)
[2019-02-17 19:12] LABS: INR 1.1; PROTHROMBIN TIME 11.5 sec (9.6-11.0)
[2019-02-17] MEDS ORDERED: HYDRALAZINE 20MG/ML VIAL IV ONE (19:45)
[2019-02-17] MEDS ORDERED: MORPHINE SULFATE 4 MG/ML CPJ (NOT FOR IM USE) IV STA (22:14)
[2019-02-17] MEDS ORDERED: ONDANSETRON HCL 4MG/2ML INJ IV STA (22:14)
[2019-02-17 23:40] VITALS: BP 204/75
[2019-02-18] VITALS: BP 204/75
[2019-02-18] MEDS ORDERED: HYDROCODONE/ACETAMINOPHEN 5/325MG TABLET PO PRN (01:00)
[2019-02-18] MEDS ORDERED: ZOLPIDEM TARTRATE 5MG TABLET PO PRN (01:00)
[2019-02-18] MEDS ORDERED: ONDANSETRON HCL 4MG/2ML INJ IV PRN (01:00)
[2019-02-18] MEDS ORDERED: DEXTROSE 50% WATER 50ML SYRINGE IV PRN (01:00)
[2019-02-18] MEDS ORDERED: CLONIDINE 0.2MG TABLET PO PRN (01:00)
[2019-02-18] MEDS ORDERED: CLON-457 PO (01:13)
[2019-02-18] MEDS ORDERED: FERR325T6 MT (01:13)
[2019-02-18] MEDS ORDERED: MAGN200T5 PO (01:13)
[2019-02-18] MEDS ORDERED: PRAV20TA57 MT (01:13)
[2019-02-18] MEDS ORDERED: SITA25TA3 MT (01:13)
[2019-02-18] MEDS ORDERED: RANI150C12 MT (01:13)
[2019-02-18] MEDS ORDERED: ACET-1465 PO (01:13)
[2019-02-18 04:00] VITALS: BP 178/66
[2019-02-18] MEDS ORDERED: HYDRALAZINE HCL 50MG TABLET PO SCH (06:00)
[2019-02-18] MEDS: PANTOPRAZOLE 40MG DR TABLET PO SCH (06:04)
[2019-02-18] MEDS: INSULIN LISPRO 100 UNITS/ML SUBCUT SCH ×4 (06:07→21:00)
[2019-02-18] MEDS: BLOOD SUGAR DIAGNOSTIC STRIP TEST SCH ×4 (07:10→21:00)
[2019-02-18 08:00] VITALS: BP 152/58
[2019-02-18] MEDS: ENOXAPARIN 30MG/0.3ML SYR SUBCUT SCH (09:29)
[2019-02-18 12:00] VITALS: BP 150/62
[2019-02-18 12:45] LABS: BASOPHILS % 0.9 % (0.0-2.0); EOSINOPHILS % 2.6 % (0.0-5.0); HEMOGLOBIN. 12.6 g/dL (12.0-16.0); LYMPHOCYTES % 37.7 % (20.0-50.0); MEAN CORPUSCULAR HEMOGLOBIN 29.9 pg (28.0-32.0); MEAN CORPUSCULAR VOLUME 87.8 fL (81.0-99.0); MEAN PLATELET VOLUME 9.8 fl (7.4-10.4); NEUTROPHILS % 47.8 % (40.0-76.0); PLATELET 110 x1000/uL (130-400); RED BLOOD CELL COUNT 4.21 mill/uL (4.2-5.4); RED CELL DISTRIBUTION WIDTH 14.9 % (11.6-14.6)
[2019-02-18] MEDS: LOSARTAN POTASSIUM 25 MG TABLET PO SCH (13:17)
[2019-02-18] MEDS: AMLODIPINE 5MG TABLET PO SCH (13:17)
[2019-02-18 13:21] LABS: BG CARBOXYHEMOGLOBIN 1.4 % (0.5-1.5); BG DEOXYHEMOGLOBIN 3.8 % (0.0-5.0); BG FRACTION INSPIRED OXYGEN 21; BG METHEMOGLOBIN 0.1 % (0.0-1.5); BG OXYGEN SATURATION 96.1 % (92.0-98.5); BG OXYHEMOGLOBIN 94.7 % (94.0-97.0); BG PCO2 42.6 mmHg (35.0-45.0); BG PH 7.403 (7.350-7.450); BG PO2 82.8 mmHg (75.0-100.0); BG SAMPLE SITE LEFT RADIAL; BG TOTAL HEMOGLOBIN 12.6 g/dL (12.0-18.0); BG VENT MODE ROOM AIR
[2019-02-18] MEDS ORDERED: HYDRALAZINE 20MG/ML VIAL IV PRN (14:00)
[2019-02-18] MEDS: HYDRALAZINE HCL 10MG TABLET PO SCH ×2 (15:18→23:18)
[2019-02-18 16:00] VITALS: BP 147/70
[2019-02-18 20:00] VITALS: BP 184/87
[2019-02-18 20:38] LABS: CREATINE KINASE MB FRACTION 2.4 ng/mL (0.5-3.6)
[2019-02-18] MEDS: NITROGLYCERIN OINT 1GM/INCH UDPKT TD SCH (23:18)
[2019-02-19] VITALS: BP_SYST 182; BP_SYST 186; BP_DIAS 67; BP_DIAS 71
[2019-02-19 04:00] VITALS: BP 172/68
[2019-02-19] MEDS: BLOOD SUGAR DIAGNOSTIC STRIP TEST SCH ×2 (06:18→12:36)
[2019-02-19] MEDS: PANTOPRAZOLE 40MG DR TABLET PO SCH (06:30)
[2019-02-19] MEDS: NITROGLYCERIN OINT 1GM/INCH UDPKT TD SCH ×2 (06:32→14:00)
[2019-02-19] MEDS: HYDRALAZINE HCL 10MG TABLET PO SCH (06:32)
[2019-02-19] MEDS: INSULIN LISPRO 100 UNITS/ML SUBCUT SCH ×2 (06:33→15:39)
[2019-02-19 07:04] LABS: EOSINOPHILS % 1.1 % (0.0-5.0); HEMATOCRIT. 34.7 % (36.0-48.0); HEMOGLOBIN. 11.8 g/dL (12.0-16.0); LYMPHOCYTES % 33.3 % (20.0-50.0); MEAN CORPUSCULAR HEMOGLOBIN 29.9 pg (28.0-32.0); MEAN CORPUSCULAR VOLUME 88.1 fL (81.0-99.0); MONOCYTES % 10.3 % (2.0-8.0); NEUTROPHILS % 54.3 % (40.0-76.0); PLATELET 122 x1000/uL (130-400); RED BLOOD CELL COUNT 3.94 mill/uL (4.2-5.4)
[2019-02-19] MEDS: ENOXAPARIN 30MG/0.3ML SYR SUBCUT SCH (08:07)
[2019-02-19 08:28] VITALS: BP 167/54
[2019-02-19] MEDS: AMLODIPINE 5MG TABLET PO SCH (08:38)
[2019-02-19] MEDS: LOSARTAN POTASSIUM 25 MG TABLET PO SCH (08:38)
[2019-02-19] MEDS ORDERED: LOSARTAN POTASSIUM 25 MG TABLET PO NR (10:30)
[2019-02-19 12:00] VITALS: BP 149/59
[2019-02-19] MEDS ORDERED: HYDRALAZINE HCL 25MG TABLET PO SCH (14:00)
[2019-02-19 16:56] VITALS: BP 168/72
[2019-02-19 17:37] VITALS: BP 168/74
[2019-02-20] MEDS ORDERED: LOSARTAN POTASSIUM 50 MG TABLET PO SCH (09:00)
[2019-02-20] MEDS ORDERED: FAMOTIDINE 20MG TABLET PO SCH (09:00)
== END 2019-02-19 18:25 | disposition home or self-care (01) | DRG 280 ==
LOC: ER 14:40 → 8WST 20:39 → EDBEDREQ 20:43 → EDBEDREQTM 20:43 → ENRESERV 21:30
PROVIDERS: ADMIT Internal Medicine; ATTEND Internal Medicine
DX: I21.4 Non-ST elevation (NSTEMI) myocardial infarction (principal); N18.6 End stage renal disease; G93.40 Encephalopathy, unspecified; D68.59 Other primary thrombophilia; J90 Pleural effusion, not elsewhere classified; E87.1 Hypo-osmolality and hyponatremia; I16.1 Hypertensive emergency; I13.11 Hypertensive heart and chronic kidney disease without heart failure, with stage 5 chronic kidney disease, or end stage renal disease; I08.3 Combined rheumatic disorders of mitral, aortic and tricuspid valves; D63.8 Anemia in other chronic diseases classified elsewhere; Z88.0 Allergy status to penicillin; I27.20 Pulmonary hypertension, unspecified; E78.5 Hyperlipidemia, unspecified; E11.22 Type 2 diabetes mellitus with diabetic chronic kidney disease; D72.819 Decreased white blood cell count, unspecified; D69.6 Thrombocytopenia, unspecified; Z99.2 Dependence on renal dialysis; Z82.49 Family history of ischemic heart disease and other diseases of the circulatory system; Z85.3 Personal history of malignant neoplasm of breast; Z87.11 Personal history of peptic ulcer disease; Z87.891 Personal history of nicotine dependence; Z90.13 Acquired absence of bilateral breasts and nipples; Z90.710 Acquired absence of both cervix and uterus
CPT/HCPCS: 36415; 36600; 71045; 80048; 82140; 82375; 82550; 82553; 82805; 82962; 84484; 93005; 93306; 93970; 99285; J0360; J1650; J1815; J2270; J2405

== ENCOUNTER 2020-06-04 08:01 | Emergency (ER) | payer MEDICARE, MEDICAID ==
[~2020-06-04] VITALS: Ht 185.4 cm; Wt 85.0 kg
[~2020-06-04 08:01] MED LIST changes: +ACET-1465 PO; -ACET-2178 PO; -AMLO10TA80 PO; -ASPI-1159 PO; +CLON-457 PO; -CLON0.1T PO; +FERR325T6 MT; -FURO-152 PO; -GABA-531 PO; -HYDR-4134 PO; -LORA10TA7 PO; -LOSA25TA3 PO; +MAGN200T5 PO; -MAGN400C PO; -METO-539 PO; -OCD PO; -POTA10CA42 PO; +PRAV20TA57 MT; -PRAV20TA57 PO; +RANI150C12 MT; -RANI150T7 PO; +SITA25TA3 MT; -SITA50TA3 PO; -SPIR50TA5 PO; -TEMA15CA5 PO
[2020-06-04 08:47] LABS: BASOPHILS % 0.9 % (0.0-2.0); EOSINOPHILS % 2.7 % (0.0-5.0); HEMATOCRIT. 27.1 % (36.0-48.0); HEMOGLOBIN. 9.3 g/dL (12.0-16.0); MEAN CORPUSCULAR VOLUME 92.8 fL (81.0-99.0); MEAN PLATELET VOLUME 10.6 fl (7.4-10.4); MONOCYTES % 8.3 % (2.0-8.0); NEUTROPHILS % 63.1 % (40.0-76.0); PLATELET 138 x1000/uL (130-400); RED BLOOD CELL COUNT 2.93 mill/uL (4.2-5.4); RED CELL DISTRIBUTION WIDTH 14.3 % (11.6-14.6)
[2020-06-04 08:53] LABS: CHLORIDE 92 mEq/L (98-107)
[2020-06-04 08:56] LABS: INR 1.1; PROTHROMBIN TIME 11.2 sec (9.6-11.0)
[2020-06-04 11:26] VITALS: BP 176/56
== END 2020-06-04 11:29 | disposition home or self-care (01) ==
LOC: ER 08:19
DX: T82.41XA Breakdown (mechanical) of vascular dialysis catheter, initial encounter (principal); Y82.8 Other medical devices associated with adverse incidents; Y92.89 Other specified places as the place of occurrence of the external cause; I12.0 Hypertensive chronic kidney disease with stage 5 chronic kidney disease or end stage renal disease; N18.6 End stage renal disease; Z99.2 Dependence on renal dialysis; E11.22 Type 2 diabetes mellitus with diabetic chronic kidney disease; Z79.899 Other long term (current) drug therapy
CPT/HCPCS: 36415; 80053; 85025; 93005; 99284